=== PATIENT | female | born 1995 | race Caucasian/White ===

== ENCOUNTER 2017-11-20 13:34 | Emergency (ER) | payer OTHER ==
[~2017-11-20] VITALS: Ht 165.1 cm; Wt 61.1 kg
[2017-11-20 13:40] VITALS: TEMP 37.1; Ht 165.1 cm; Wt 61.1 kg
[2017-11-20] MEDS ORDERED: ALBUT/IPRATROP 3MG/0.5MG NEB 3 ML VIAL INH ONE (14:15)
--- NOTE | 2017-11-20 14:20 | DIAGNOSTIC IMAGING REPORT ---
SINGLE VIEW CHEST CLINICAL HISTORY: Atypical chest pain. FINDINGS: An AP, portable, upright chest radiograph is obtained. No prior studies are available for comparison at the time of dictation. The cardiomediastinal silhouette is unremarkable. The lungs and pleural spaces are clear. No pneumothorax is seen. The bony thorax is grossly intact. IMPRESSION: No active disease in the chest. Electronically signed by: Brandon Haywood M.D. 11/20/2017 2:18 PM Dictated Date/Time: 11/20/2017 2:18 PM
--- NOTE | 2017-11-20 14:51 | EMERGENCY ROOM VISIT NOTE ---
History First contact with patient: 13:43 Chief Complaint: FLU LIKE SX Stated Complaint: WHEZZING, COUGH, CONSTANT RUNNY NOSE, CONGESTION History of Present Illness 22F who presents to the Emergency Room with complaints of wheezing, sore throat , cough and rhinorrea x 4 days. She has not had any fevers. Her throat is still sore. Her cough does not keep her up at night. She did use a nebulizer when she was younger. She is audibly wheezing and is wondering why. She didn' t go to [facility] because [facility] doesn't accept her insurance and the [facility] clinic on campus was closed. Nobody else in her home is sick. ROS: No chest pain, + SOB, no dyspnea on exertion, no palpitations, no fevers, no chills, no nausea, no vomiting, no diarrhea, no dysuria, no rash. SHX: [place] at [facility] studying [employer], smokes 2-3x/day or marijuana. Review of Systems See HPI for pertinent positives and negatives. A total of ten systems were reviewed and were otherwise negative. Social History Smoking Status: Current Some Day Smoker Current/Historical Medications Scheduled Azithromycin (Zithromax), 250 MG PO DAILY Scheduled PRN Albuterol (Ventolin Hfa), 2 PUFFS PO Q4H PRN for SOB/Wheezing Physical Exam Vital Signs Date Time Temp Pulse Resp B/P (MAP) Pulse Ox O2 Delivery O2 Flow Rate FiO2 11/20/17 15:41 79 18 120/68 100 Room Air 11/20/17 13:40 37.1 82 18 111/69 94 Room Air Physical Exam Gen: No acute distress. HEENT: Head - normocephalic and atraumatic. Pupils are equal, round, and reactive to light. Extraocular eye muscles are intact and sclera are anicteric. Ears - bilaterally patent canals with noninjected tympanic membranes and no evidence of hemotympanum. Nose - moist nasal mucosa without discharge. Mouth - moist buccal mucosa. Oropharynx is erythematous and there is no tonsillar exudate or edema noted. Neck: Supple; no JVD, nuchal rigidity, cervical lymphadenopathy, or auscultated bruits. Heart: Regular rate and rhythm. There is a normal S1 and S2 with no murmurs, clicks, or gallops appreciated. Lungs: Rhonchi in the RLL and inspiratory wheezing in all lung correa bilaterally, anteriorly and posteriorly. Abdomen: Soft, completely nontender, nondistended, with good bowel sounds. There are no palpable pulsatile masses or hepatosplenomegaly. There is no guarding, rigidity, or rebound noted. Extremities: No evidence of cyanosis, clubbing, or edema. There are easily palpable peripheral pulses. Neuro:The patient is awake and alert, oriented to day, time, and place. Muscle strength is 5/5 in all 4 extremities. The patient has equal enrollment representative strength and equal pedal push and pull. There are no cerebellar signs. Medical Decision & Procedures ER Provider Diagnostic Interpretation: SINGLE VIEW CHEST CLINICAL HISTORY: Atypical chest pain. FINDINGS: An AP, portable, upright chest radiograph is obtained. No prior studies are available for comparison at the time of dictation. The cardiomediastinal silhouette is unremarkable. The lungs and pleural spaces are clear. No pneumothorax is seen. The bony thorax is grossly intact. IMPRESSION: No active disease in the chest. Medications Administered Medications (Trade) Dose Ordered Sig/Eitenne Route Start Time Stop Time Status Last Admin Dose Admin Albuterol/ Ipratropium (Duoneb) 3 ml ONE ONCE INH 11/20/17 14:15 11/20/17 14:16 DC 11/20/17 15:28 3 ML Medical Decision The patient's care and disposition was discussed with Dr. Jo, Attending ED Physician. This is a 22F with wheezing and sore throat. Differential diagnosis include viral syndrome, asthma, otitis media, pharyngitis, pneumonia, influenza, bronchitis, sepsis, bacteremia, as well as others were entertained. Triage Nursing notes were reviewed. ED Course included an extensive history and physical exam, lab testing and Xray Xray reviewed and WNL. Rapid strep was negative. 1330 - PT was examined by Dr. Price. 1400 - Pt was discussed with Dr. Jo and orders were placed. 1500 - Pt was informed of Xray results and Throat Swab was performed by myself. 1530 - Pt was informed of negative throat swab and potential discharge plan. 1545 - Discharge plan (Abx and Ventolin) were discussed with Dr. Jo. 1600 - Pt was informed of discharge plan (Azithromycin and Ventolin), and instructed the location of the [facility] clinic to establish care with a PCP or for follow up if her symptoms don't improve. The pt was informed about the findings as listed above. All questions were answered. Return instructions were outlined and the patient was discharged in good condition. The patient was referred to PCP for recheck of the current condition. ( Recommended to chart picker a PCP at [facility]). Impression Primary Impression: Pneumonia Additional Impression: Reactive airway disease Departure Information Dispostion Home / Self-Care Condition GOOD Prescriptions Albuterol (Ventolin Hfa) 60 Puffs/5400 Mcg Aers 2 PUFFS PO Q4H Y for SOB/Wheezing for 14 Days, #1 INHALER Prov: Ramez Price M.D. 11/20/17 Azithromycin (Zithromax) 250 Mg Tab 250 MG PO DAILY for 5 Days, #6 TAB 2 Tabs Day #1 1 Tab Days 2-5 Prov: Ramez Price M.D. 11/20/17 Referrals No Doctor, Assigned (PCP) Patient Instructions Albuterol inhalation aerosol, Azithromycin tablets, My [facility]Act Additional Instructions Because of the duration of your symptoms and your reactive airways we are going to give you an antibiotic for pneumonia called Azithromycin. We are also giving you a prescription for Albuterol (Ventolin), take 2 puffs up to every 4 hours for wheezing/cough. Please follow up with your primary care provider within 2 weeks. Please drink a lot of fluids. Please refrain from smoking any substance - any type of smoke particle can irritate the lung and delay the healing process and increase the inflammatory process. For your cough you may benefit from drinking honey based teas - these have been shown to decrease coughing. You may also take Dayquil, Dextrometorphan or Robitussin (over the counter medications) for your cough. There is a Walk In Clinic for [facility] on [address] and at [address] [place] [address] ([address]) - the building next to the hospital in case you want to establish care or if you have any acute care concerns. Resident Involvement: Resident Care Provided Care Provided: Pediatric Care ED Problem Qualifiers
[2017-11-20 15:41] VITALS: BP 120/68; PULSE 79; O2SAT 100
[2017-11-20] MEDS ORDERED: PRVHFAIN PO (15:58)
[2017-11-20] MEDS ORDERED: AZIT250T PO (15:58)
--- NOTE | 2017-11-20 17:21 | EMERGENCY ROOM VISIT NOTE ---
ED Visit Note First contact with patient: 13:46 I have personally evaluated this patient examined her and reviewed the pertinent labs and data. I have discussed the case with Ramez, the resident physician and agree with the plan. Please refer to the PA note. This patient comes in after having cough and URI type symptoms for about a week.she's had no fever. She has had a sore throat and nasal congestion . on exam initially she was wheezing and she did get a nebulized treatment and when I examine her lungs are now clear. She's not hypoxemic. Chest x-ray was unremarkable and shows no pneumonia. She does have a history of using an albuterol inhaler/neb as a child and it may be that there is underlying reactive airway component. we'll send her home with an inhaler and also azithromycin antibiotic was given. She should rest and drink plenty fluids return if worsening symptoms or any new problems or concerns.
== END 2017-11-20 16:16 | disposition home or self-care (01) ==
LOC: C.EDB 13:36
DX: J18.9 Pneumonia, unspecified organism (principal); J45.901 Unspecified asthma with (acute) exacerbation; F17.200 Nicotine dependence, unspecified, uncomplicated